=== PATIENT | male | born 1985 | race Caucasian/White ===

== ENCOUNTER 2022-08-26 10:01 | Emergency (ER) | payer SELFPAY ==
[2022-08-26 10:03] VITALS: BP 158/98; PULSE 110; RESP 22; TEMP 36.3; O2SAT 97; BMI 52.9
--- NOTE | 2022-08-26 11:00 | VDLE_ITS ---
Reason For Study: Pain Procedure LEFT This is a venous duplex using B-mode, color GSV is normal. flow and spectral Doppler. CFV is compressible, spontaneous, phasic, Exam performed portable in ED. competent, and demonstrates normal A preliminary report was called and/or faxed augmentation. to [facility]. FV is compressible, spontaneous, phasic, competent and demonstrates normal augmentation. POP V is compressible, spontaneous, phasic, competent and demonstrates normal augmentation. T/P Trunk is compressible. PTV is compressible. LT PerV is compressible. VL/Venous Duplex US, Unilateral Interpretation Summary Deep veins of the left lower extremity are patent and compressible segmentally. There is no evidence of left lower extremity deep vein thrombosis. The left great saphenous vein everett ears patent and compressible segmentally. Ordering Physician: Bobby Israel Performed By: Concepcion Avitia RVT
--- NOTE | 2022-08-26 11:28 | EDS_ITS ---
HPI History of Present Illness Chief Complaint: Lower Extremity Injury Informant: patient Narrative Narrative: 36-year-old male presenting to the emergency room with chief complaint of left leg and calf pain. Symptoms have been present for the past 7 days any notes swelling. Hand he notes he has a sore on his left great toe. This has been present over the past week. He is not currently wearing socks and is currently wearing leather boots. He notes that he is a diabetic. He denies any fevers or prior history of DVT/PE. He denies any history of gout. He notes chronic swelling of the lower extremities bilaterally and is unsure why that is. He notes pain is worse in his bilateral legs with rest than it is with exertion. PFSH PFSH Medical History Diabetes HTN (hypertension) Obesity Smoker Home Medications cephalexin 500 mg capsule 500 mg PO Q6 #40 CAPSULES 08/26/22 [Rx Last Taken Unknown] hydrocodone-acetaminophen 5-325mg 5mg-325mg 1 tab PO Q6H PRN PRN Pain 3 days #12 TABLETS 08/26/22 [Rx Last Taken Unknown] sulfamethoxazole 800 mg-trimethoprim 160 mg tablet 1 tab PO BID #20 TABLETS 08/26/22 [Rx Last Taken Unknown] Allergy/AdvReac Type Severity Reaction Status Date / Time Penicillins [PCN] Allergy Hives Verified 08/26/22 10:02 Social History (Updated 08/26/22 @ 11:[address] Bobby Israel, DO) Smoking Status: Heavy Smoker (>10/day) substance use type: does not use ROS ROS ED Constitutional Constitutional ED: Denies chills or weight loss Eyes Eyes: Denies change in vision or diplopia ENT ENT ED: Denies ear pain, rhinorrhea or sore throat Cardiovascular Cardiovascular: Denies chest pain, orthopnea, palpitations or racing heartbeat Respiratory/Chest Respiratory/Chest: Denies cough, dyspnea or orthopnea Gastrointestinal Gastrointestinal: Denies abdominal pain, diarrhea, nausea or vomiting Genitourinary Genitourinary ED: Denies dysuria, hematuria or urinary frequency Musculoskeletal Musculoskeletal: Reports other Details: Left leg pain ; Denies arthralgias or myalgias Integumentary Reports rash; Denies abscess Neurologic Neurologic: Denies headache(s) or weakness Psychiatric Psychiatric: Denies anxiety, depression, suicidal ideation or suicidal thoughts Endocrine Endocrinology: Denies polydipsia, polyphagia or polyuria Allergic/Immunologic Allergic/Immunologic ED: Denies mouth swelling, tongue swelling or urticaria EXAM Physical Exam Const Vital Signs: 08/26/22 10:03 Temperature 97.4 F L Temperature Source Temporal Pulse Rate 110 H Respiratory Rate 22 H Blood Pressure 158/98 H Blood Pressure Mean 118 Pulse Ox 97 Oxygen Delivery Method Room Air Positive well nourished, well developed and obese General Appearance ED: well developed Nutritional Appearance: obese HEENT Reports normocephalic, head/scalp atraumatic and moist mucous membranes Eyes PERRL and EOMs intact bilaterally Neck no lymphadenopathy, supple and no JVD Resp normal respiratory effort and clear to auscultation bilaterally Cardio regular rate, regular rhythm and no murmurs GI normal to inspection, nondistended, normoactive bowel sounds and non-tender Palpation: soft Back/Spine no CVA tenderness and normal ROM Extremity normal to inspection General Extremety ED: Negative for edema General Extremity: Negative for edema Neuro oriented x3 and CN's II-XII intact bilaterally Sensorium / Orientation: alert Motor Exam: strength 5/5 throughout Psych mental status grossly normal Mood & Affect: Negative for depressed or tearful Skin Skin Narrative: There is a dime sized circular wound over the medial aspect of the left great toe with some degree of lymphangitis up onto the foot dorsally and into the ankle. The calf is very tender to palpation. There is no palpable cords. He has symmetric swelling bilaterally. MDM MDM MDM Narrative Medical decision making narrative: Duplex ultrasound was negative for clot. Differential would include gout versus pseudogout as well as infection. Because of the open wound and with diabetes and the evidence of lymphangitis and we will be placing him on Keflex/Bactrim. I will write for pain medication. Would recommend early follow-up with primary care. He would also benefit from seeing a biofuels research scientist for his diabetic foot care and from visiting with vascular surgery given his diabetes smoking and lymphedema at such a young age. Discharge Plan Triage Chief Complaint: Lower Extremity Injury ED Provider: Bobby Israel Dx/Rx/DC Orders Clinical Impression: Left leg pain, Cellulitis in diabetic foot, Lymphedema Instructions: Cellulitis Dc, ED Peripheral Edema, Bilateral Prescriptions: New hydrocodone-acetaminophen [hydrocodone-acetaminophen] 5-325 mg tablet 1 tab PO Q6H PRN PRN (Reason: Pain) 3 Days Qty: 12 0RF sulfamethoxazole-trimethoprim [sulfamethoxazole-trimethoprim] 800-160 mg table t 1 tab PO BID Qty: 20 0RF cephalexin [cephalexin] 500 mg capsule 500 mg PO Q6 Qty: 40 0RF Primary Care Provider: MARY ANNE HERNANDEZ Referrals: MARY ANNE HERNANDEZ [Other] - As soon as possible Rodolfo Jimenez MD [Med Staff - Active Staff] - As soon as possible (for vascular surgery) Boo Lund DPM [Med Staff - Active Staff] - As soon as possible (for podiatry) Disposition Disposition: Home, Self Care
== END 2022-08-26 12:19 | disposition home or self-care (01) ==
PROVIDERS: Emergency Provider Emergency Medicine; Visit Provider Emergency Medicine
DX: L03.116 Cellulitis of left lower limb (principal); E11.9 Type 2 diabetes mellitus without complications; M79.605 Pain in left leg; I89.0 Lymphedema, not elsewhere classified; I10 Essential (primary) hypertension; F17.200 Nicotine dependence, unspecified, uncomplicated; M79.604 Pain in right leg
CPT/HCPCS: 93971; 99282